=== PATIENT | female | born 1955 | race Caucasian/White ===

== ENCOUNTER → 2018-03-22 09:37 | Outpatient (CLI) | payer OTHER, SELFPAY ==
[2018-03-22 10:40] LABS: Add Manual Diff / Slide Review NO; Basophils Percent Auto 0.5 % (0-2); Eosinophils Percent Auto 0.6 % (2-4); Hematocrit 41.4 % (36-46); Hemoglobin 14.1 g/dL (12.0-16.0); Lymphocytes Percent Auto 29.9 % (25-40); Mean Corpuscular HGB Conc 34.2 % (30-36); Mean Corpuscular Volume 90.7 fL (80-100); Monocytes Percent Auto 9.9 % (3-14); Neutrophils Absolute Auto 2200 /uL (3000-5900); Neutrophils Percent Auto 59.1 % (50-75); Platelet Count 242 X10^3/uL (150-400); Red Blood Cell Count 4.56 X10^6/uL (4.0-5.2); Red Cell Distribution Width 13.6 % (11.6-14.8); White Blood Cell Count 3.7 X10^3/uL (4.5-11.0)
[2018-03-22 11:00] LABS: Alanine Aminotransferase 28 IU/L (9-52); Albumin 4.2 g/dL (3.5-5.0); Albumin Globulin Ratio 1.4 (1.0-2.8); Alkaline Phosphatase 57 U/L (38-126); Aspartate Aminotransferase 22 IU/L (14-36); BUN Creatinine Ratio 31.7 (6-22); Bilirubin Total 0.6 mg/dL (0.2-1.3); Blood Urea Nitrogen 19 mg/dL (7-17); Calcium 9.7 mg/dL (8.4-10.2); Carbon Dioxide 30 mmol/L (22-32); Chloride 103 mmol/L (98-107); Cholesterol 147 mg/dL (140-199); Estimated Glomerular Filt Rate > 60.0 mL/min (>60); Globulin 2.9 g/dL (1.7-4.1); Glucose 85 mg/dL (80-110); HDL Cholesterol 63 mg/dL (40-60); HEMOLYSIS < 15 (0-50); LDL Cholesterol Calculated 76 mg/dL (<100); Potassium 4.7 mmol/L (3.4-5.1); Sodium 144 mmol/L (137-145); Total Protein 7.1 g/dL (6.3-8.2); Triglycerides 38 mg/dL (35-150)
[2018-03-22 11:13] LABS: Free T3, Triiodothyronine Free 6.32 pg/mL (2.77-5.27); Free T4, Direct Thyroxine 0.59 ng/dL (0.78-2.19)
[2018-03-22 11:27] LABS: Thyroid Stimulating Hormone 0.05 uIU/mL (0.47-4.68)
== END ==
PROVIDERS: PCP Family Medicine; Visit Provider Family Medicine
DX: E03.9 Hypothyroidism, unspecified (principal); Z00.00 Encounter for general adult medical examination without abnormal findings
CPT/HCPCS: 36415; 80053; 80061; 84439; 84443; 84481; 85025

== ENCOUNTER → 2018-08-16 12:41 | Outpatient (CLI) | payer MEDICARE, OTHER, SELFPAY ==
--- NOTE | 2018-08-16 | DI.MG.S_ITS ---
BILATERAL DIGITAL SCREENING MAMMOGRAM 3D/2D WITH CAD: 08/16/2018 CLINICAL: Routine screening. Comparison is made to exams dated: 05/19/2017 mammogram, 05/18/2016 mammogram, and 07/25/2014 mammogram - [facility]. The tissue of both breasts is heterogeneously dense. This may lower the sensitivity of mammography. Current study was also evaluated with a Computer Aided Detection (CAD) system. There is 0.5 cm oval equal density asymmetry in the right breast at 11 o'clock anterior depth. No other significant masses, calcifications, or other findings are seen in either breast. IMPRESSION: INCOMPLETE: NEEDS ADDITIONAL IMAGING EVALUATION The 0.5 cm oval equal density asymmetry in the right breast is indeterminate. Additional views with possible ultrasound are recommended. This exam was interpreted at Station ID: [id number]. NOTE: For mammograms, a report in lay terms will be sent to the patient. Approximately 15% of breast malignancies will not be visualized mammographically. In the management of a palpable breast mass, a negative mammogram must not discourage biopsy of a clinically suspicious lesion. Electronically Signed By: Nawaf khanna/judith:08/16/2018 18:22:11 letter sent: Additional Imaging Needed ACR BI-RADS Category 0: Incomplete 3340F
== END ==
PROVIDERS: Family Provider Family Medicine; PCP Family Medicine; Visit Provider Family Medicine
DX: Z12.31 Encounter for screening mammogram for malignant neoplasm of breast (principal)
CPT/HCPCS: 77063; 77067

== ENCOUNTER → 2018-08-31 13:40 | Outpatient (CLI) | payer MEDICARE, OTHER, SELFPAY ==
--- NOTE | 2018-08-31 13:41 | DI.US.S_ITS ---
LIMITED ULTRASOUND OF RIGHT BREAST: 08/31/2018 CLINICAL: Patient returns today to evaluate an asymmetry in the right breast. Comparison is made to exams dated: 08/31/2018 mammogram, 08/16/2018 mammogram, 05/19/2017 mammogram, 05/18/2016 mammogram, 07/25/2014 mammogram, and 04/25/2013 mammogram - [facility]. Real-time and Doppler ultrasound of the right breast upper outer quadrant were performed. Hawk scale images of the real-time examination were reviewed. There is a 0.4 x 0.2 x 0.3 cm oval indistinct hypoechoic probable cyst in the right breast at 11:30 position 3 cm from the nipple which demonstrates minimal posterior acoustic enhancement and no vascularity on Doppler ultrasound. This appears to correlate with mammography findings. IMPRESSION: PROBABLY BENIGN 0.4 cm probable complicated cyst in the right breast at 11:30 position 3 cm from the nipple. A follow-up mammogram and ultrasound in 6 months is recommended to demonstrate stability. The patient is advised to monitor her breasts and to return sooner for re-evaluation should she feel anything grow or change. This exam was interpreted at Station ID: [id number]. Electronically Signed By: Syed Dudley M.D. ecl/:08/31/2018 18:03:26 letter sent: Followup Recommended Ultrasound BI-RADS: 3 Probably benign
--- NOTE | 2018-08-31 13:41 | DI.MG.S_ITS ---
UNILATERAL RIGHT DIGITAL DIAGNOSTIC MAMMOGRAM 3D/2D WITH ADDITIONAL VIEWS: 08/31/2018 CLINICAL: Additional evaluation requested from prior study. Comparison is made to exams dated: 08/16/2018 mammogram, 05/19/2017 mammogram, and 05/18/2016 mammogram - [facility]. The tissue of right breast is heterogeneously dense. This may lower the sensitivity of mammography. Previously identified approximately 0.5 cm oval equal density asymmetry in the upper outer right breast near 11 o'clock anterior to middle depth on comparison screening mammograms persists with additional views. IMPRESSION: INCOMPLETE: NEEDS ADDITIONAL IMAGING EVALUATION Previously identified approximately 0.5 cm oval equal density asymmetry in the upper outer right breast near 11 o'clock anterior to middle depth on comparison screening mammograms persists with additional views. A targeted ultrasound is recommended for further evaluation, and will be performed immediately following this exam. This exam was interpreted at Station ID: [id number]. NOTE: For mammograms, a report in lay terms will be sent to the patient. Approximately 15% of breast malignancies will not be visualized mammographically. In the management of a palpable breast mass, a negative mammogram must not discourage biopsy of a clinically suspicious lesion. Electronically Signed By: Syed Dudley M.D. ecl/:08/31/2018 18:01:19 letter sent: Additional Imaging Needed ACR BI-RADS Category 0: Incomplete 3340F
== END ==
PROVIDERS: Family Provider Family Medicine; PCP Family Medicine; Visit Provider Family Medicine
DX: R92.8 Other abnormal and inconclusive findings on diagnostic imaging of breast (principal); N64.89 Other specified disorders of breast
CPT/HCPCS: 76642; 77065; G0279

== ENCOUNTER → 2018-09-15 11:31 | Outpatient (CLI) | payer MEDICARE, OTHER, SELFPAY ==
--- NOTE | 2018-09-15 11:33 | DI.RAD.S_ITS ---
PROCEDURE: XR CHEST 2V INDICATIONS: Cough TECHNIQUE: 2 views of the chest were acquired. COMPARISON: [facility], , CHEST 2 VIEW, 03/13/2016, 12:04. FINDINGS: Surgical changes and devices: None. Lungs and pleura: Lungs are clear. No pleural effusions or pneumothorax. A presumed left nipple shadow as before. This could be confirmed with repeat chest radiograph with nipple markers . Mediastinum: Mediastinal contours are normal. Heart size is normal. Bones and chest wall: Mild anterior wedging of a lower thoracic vertebral body, probably T11. IMPRESSION: T11 mild compression fracture, technically age-indeterminate. Recommend clinical correlation. No acute cardiopulmonary disease. Dictated by: Jefferson Mercedes M.D. on 09/15/2018 at 11:57 Approved by: Jefferson Mercedes M.D. on 09/15/2018 at 11:59
== END ==
PROVIDERS: PCP Family Medicine; Visit Provider Registered Nurse
DX: R05 Cough (principal); M48.54XA Collapsed vertebra, not elsewhere classified, thoracic region, initial encounter for fracture
CPT/HCPCS: 71046

== ENCOUNTER → 2018-10-11 11:15 | Outpatient (CLI) | payer MEDICARE, OTHER, SELFPAY ==
--- NOTE | 2018-10-11 11:17 | DI.RAD.S_ITS ---
PROCEDURE: XR LUMBAR SPINE MIN 4V INDICATIONS: osteoporosis TECHNIQUE: 5 views of the lumbar spine were acquired. COMPARISON: [facility], , L-SPINE 2-3 VIEWS, 11/28/2014, 9:27. FINDINGS: Bones: 5 nonrib-bearing vertebrae are present. There is mildly dextroscoliotic bony alignment centered at L3. No vertebral body compression fractures. No suspicious bony lesions. With reference to prior lumbosacral spine plain film imaging from 11/28/14 there has been only a slight degree of interval worsening of degenerative changes at the disc spaces and also at the facet joints. No significant subluxation is seen. The degenerative changes are moderately severe over the lower half of the LS-spine where spinal and foraminal stenosis likely is present associated with both the scoliosis, disc height reduction, and facet osteoarthritis. Soft tissues: Overlying bowel gas pattern is normal. No suspicious soft tissue calcifications. Oblique images: No pars defects. IMPRESSION: Mild interval worsening in degenerative disc disease and facet osteoarthritis over the lumbosacral spine, with reference to the prior study from November of 2014. Significant spinal and foraminal stenosis would be expected over the lower half of the LS-spine but no acute trauma is seen. Dictated by: Derrick Onofre M.D. on 10/11/2018 at 13:25 Approved by: Derrick Onofre M.D. on 10/11/2018 at 13:26
== END ==
PROVIDERS: PCP Family Medicine; Visit Provider Family Medicine
DX: G89.29 Other chronic pain (principal); M54.5 Low back pain; M81.0 Age-related osteoporosis without current pathological fracture; M51.36 Other intervertebral disc degeneration, lumbar region; M48.061 Spinal stenosis, lumbar region without neurogenic claudication
CPT/HCPCS: 72110

== ENCOUNTER → 2018-10-14 10:16 | Outpatient (CLI) | payer MEDICARE, OTHER, SELFPAY | PROVIDERS: PCP Family Medicine; Visit Provider Family Medicine | DX: M81.0 Age-related osteoporosis without current pathological fracture (principal); Z78.0 Asymptomatic menopausal state; E07.9 Disorder of thyroid, unspecified; Z82.62 Family history of osteoporosis; Z87.891 Personal history of nicotine dependence; M54.5 Low back pain; G89.29 Other chronic pain | CPT/HCPCS: 77080; 77081 ==

== ENCOUNTER → 2019-03-08 13:39 | Outpatient (CLI) | payer MEDICARE, OTHER, SELFPAY ==
--- NOTE | 2019-03-08 13:41 | DI.MG.S_ITS ---
UNILATERAL RIGHT DIGITAL DIAGNOSTIC MAMMOGRAM 3D/2D SHORT-TERM FOLLOW-UP: 03/08/2019 CLINICAL: Patient returns for a 6 month follow up of the right breast. Comparison is made to exams dated: 08/31/2018 mammogram, 08/16/2018 mammogram, and 05/19/2017 mammogram - [facility]. The tissue of right breast is heterogeneously dense. This may lower the sensitivity of mammography. The previously described oval equal density asymmetry in the right breast at 11 o'clock anterior depth persists but appears much less prominent. No other significant masses or calcifications are seen in the breast. IMPRESSION: INCOMPLETE: NEEDS ADDITIONAL IMAGING EVALUATION The oval equal density asymmetry in the right breast remains indeterminate. Further evaluation with sonogram is recommended which is scheduled to immediately follow this examination. This exam was interpreted at Station ID: [id number]. NOTE: For mammograms, a report in lay terms will be sent to the patient. Approximately 15% of breast malignancies will not be visualized mammographically. In the management of a palpable breast mass, a negative mammogram must not discourage biopsy of a clinically suspicious lesion. Electronically Signed By: Nawaf Tan M.D. aty/:03/08/2019 14:56:50 ACR BI-RADS Category 0: Incomplete 3340F
--- NOTE | 2019-03-08 13:41 | DI.US.S_ITS ---
ULTRASOUND OF RIGHT BREAST: 03/08/2019 CLINICAL: 6 month follow-up of cysts. Comparison is made to exams dated: 08/31/2018 ultrasound, 08/31/2018 mammogram, 08/16/2018 mammogram, 05/19/2017 mammogram, and 05/18/2016 mammogram - [facility]. Color flow and real-time ultrasound of the right breast were performed. Hawk scale images of the real-time examination were reviewed. There is a persist 0.5 cm x 0.3 cm x 0.5 cm cluster of microcysts versus complicated cyst with septated internal fitzpatrick in the right breast at 11 o'clock middle depth 3 cm from the nipple. This cluster of irregular cysts is hypoechoic with posterior acoustic enhancement. Color flow imaging demonstrates that there is no vascularity present. This has demonstrated slight interval increase in size and previously measured 0.4 cm x 0.2 cm x 0.3 cm. There were several other smaller, similar appearing areas noted in the breast during real time imaging with the radiologist. Real time imaging demonstrated more cystic appearing components. IMPRESSION: PROBABLY BENIGN The 0.5 cm x 0.3 cm x 0.5 cm cluster of irregular cysts in the right breast likely represents a cluster of microcysts versus complicated cyst and has demonstrated some mild interval increase in size and is again probably benign. A follow-up bilateral mammogram and a right breast ultrasound in 6 months is recommended to demonstrate stability. If any clinical changes in symptoms or new palpable lesions, then return sooner for re-evaluation. Discussed options to possibly undergo ultrasound guided biopsy in lieu of observation if patient decides she does not want to continue with observation. Findings and recommendations were discussed with the patient during today's visit. This exam was interpreted at Station ID: [id number]. Electronically Signed By: Nawaf Tan M.D. aty/:03/08/2019 15:07:48 letter sent: Followup Recommended Ultrasound BI-RADS: 3 Probably benign
== END ==
PROVIDERS: PCP Family Medicine; Visit Provider Family Medicine
DX: R92.8 Other abnormal and inconclusive findings on diagnostic imaging of breast (principal); N60.01 Solitary cyst of right breast
CPT/HCPCS: 76642; 77065; G0279

== ENCOUNTER → 2019-05-31 13:12 | Outpatient (CLI) | payer MEDICARE, OTHER, SELFPAY ==
--- NOTE | 2019-05-31 13:15 | DI.RAD.S_ITS ---
PROCEDURE: XR FOOT LT MIN 3V INDICATIONS: left 2nd, 3rd digit pain TECHNIQUE: 3 views of the foot were acquired. COMPARISON: [facility], , FOOT 3V RIGHT, 04/08/2016, 15:13. FINDINGS: Bones: There is severe degenerative changes of the left first metatarsophalangeal joint with hallux valgus alignment. There are mild degenerative changes of the first and fifth interphalangeal joints. There is a subacute fracture of distal diaphysis of the left third metatarsal with mild medial and dorsal angulation and displacement of the distal fracture fragment, with prominent healing callus formation. Soft tissues: No tibiotalar joint effusion. IMPRESSION: 1. Subacute fracture of the left distal third metatarsal with prominent healing callus formation. Fracture components demonstrate mild angulation and displacement and are not yet fully united. 2. Severe degenerative changes of the left first metatarsophalangeal joint. Dictated by: Syed Dudley M.D. on 05/31/2019 at 16:59 Approved by: Syed Dudley M.D. on 05/31/2019 at 17:05
== END ==
PROVIDERS: PCP Family Medicine; Visit Provider Family Medicine
DX: M79.675 Pain in left toe(s) (principal); S92.332A Displaced fracture of third metatarsal bone, left foot, initial encounter for closed fracture
CPT/HCPCS: 73630

== ENCOUNTER → 2019-06-19 16:42 | Outpatient (CLI) | payer MEDICARE, OTHER, SELFPAY ==
--- NOTE | 2019-06-19 16:48 | DI.RAD.S_ITS ---
PROCEDURE: XR LUMBAR SPINE 2-3V INDICATIONS: LOWER BACK PAIN TECHNIQUE: 3 views of the lumbar spine were acquired. COMPARISON: [facility], CR, XR LUMBAR SPINE MIN 4V, 10/11/2018, 11:24. FINDINGS: Bones: There are 5 lumbar type vertebral bodies. There are bilateral costochondral calcifications. There is mild dextrocurvature of the lumbar spine centered at L3. The bones are diffusely demineralized. There is approximately 0.5 cm of retrolisthesis of L3 on L4. There is mild anterior wedging of the T11, T12, and L3 vertebral bodies. There is multilevel reactive endplate sclerosis most severe at the L1-L2 and L2-L3 levels. There is multilevel facet arthropathy resulting in multilevel osseous neural foraminal stenosis. Soft tissues: Overlying bowel gas pattern is nonobstructive. IMPRESSION: Moderate multilevel degenerative changes of the lumbar spine. Mild anterior wedging deformity of the T11, T12, and L3 vertebral bodies is likely secondary to chronic degenerative change, but mild compression fractures or discitis/osteomyelitis could appear similar. Correlation with point tenderness at these sites is suggested to exclude acute or subacute fracture. Consider MRI if there is continued clinical concern. Dictated by: Syed Dudley M.D. on 06/19/2019 at 18:30 Approved by: Syed Dudley M.D. on 06/19/2019 at 18:35
== END ==
PROVIDERS: PCP Family Medicine; Visit Provider Family Medicine
DX: M54.5 Low back pain (principal); M47.816 Spondylosis without myelopathy or radiculopathy, lumbar region
CPT/HCPCS: 72100

== ENCOUNTER → 2019-06-24 10:34 | Outpatient (CLI) | payer MEDICARE, OTHER, SELFPAY ==
--- NOTE | 2019-06-24 10:36 | DI.MRI.S_ITS ---
PROCEDURE: MR LUMBAR SPINE WO CON INDICATIONS: back pain after injury TECHNIQUE: Noncontrast sagittal T1 spin echo and T2 fast echo, sagittal STIR, axial T1 and T2 fast spin echo through the lumbar spine. In cases with scoliosis, additional coronal T2 fast spin echo may be performed. COMPARISON: [facility], CR, XR LUMBAR SPINE 2-3V, 06/19/2019, 16:50. FINDINGS: Image quality: Excellent. Alignment and Curvature: There is mild L1-L2-L2-L3 retrolisthesis. There is trace L3-L4 retrolisthesis. Bone Marrow: Loss of height noted in the T12 vertebral body compatible with compression fracture. Increased T2 signal noted in the marrow space of the T12 vertebral body indicating compression fractures acute to subacute. T12 compression fracture results in approximately 30% loss of normal vertebral body height. Chronic appearing T11 compression fracture is noted which results in approximately 60% loss of normal intervertebral body height. No kyphosis or retropulsed fragments associated the T12 or T11 compression fractures. Reactive endplate changes noted at the L1-L2, L2-L3 and L3-L4 discs. Spinal Cord: Conus medullaris terminates at the L1 level. Visualized cord demonstrates normal signal and size. Paraspinous Soft Tissues: No paravertebral masses. L1-L2: Loss of disc signal and height. Posterior disc osteophyte complex. Mild bilateral facet hypertrophy. Moderate narrowing of the central canal. Moderate bilateral neural foraminal narrowing. No neural compression. L2-L3: Loss of disc signal and height. Mild diffuse disc bulge. Mild bilateral facet hypertrophy. Mild ligamentum flavum hypertrophy. Moderate to severe narrowing of the central canal. Moderate right and severe left neural foraminal narrowing with compression of the exiting left L2 nerve root. L3-L4: Loss of disc signal and height. Mild, diffuse disc bulge. Mild bilateral facet hypertrophy. Mild ligamentum flavum hypertrophy. Moderate to severe narrowing of the central canal. Moderate right and severe left neural foraminal narrowing with compression of the exiting left L3 nerve root. L4-L5: Loss of disc signal. Minimal, diffuse disc bulge. Severe bilateral facet hypertrophy. Mild ligamentum flavum hypertrophy. Moderate to severe narrowing of the central canal. Moderate bilateral neural foraminal narrowing. No neural compression. L5-S1: Loss of disc signal. Moderate bilateral facet hypertrophy. No central stenosis. Mild bilateral neural foraminal narrowing. No neural compression. IMPRESSION: 1. Acute/subacute T12 compression fracture. Chronic appearing T11 compression fracture. 2. Multilevel degenerative disc disease. 3. Multilevel facet arthropathy 4. Moderate to severe L2-L3, L3-L4 and L4-L5 central canal narrowing. Moderate L1-L2 central canal narrowing. 5. Moderate right and severe left L2-L3 and L3-L4 neural foraminal narrowing. Moderate bilateral L1-L2 and L4-L5 neural foraminal narrowing. Mild bilateral L5-S1 neural foraminal narrowing. 6. Compression of the exiting left L2 nerve root and the exiting left L3 nerve root secondary to neural foraminal narrowing. Dictated by: Екатерина Womack MD, PhD on 06/26/2019 at 10:14 Approved by: Екатерина Womack MD, PhD on 06/26/2019 at 10:48
== END ==
PROVIDERS: PCP Family Medicine; Visit Provider Family Medicine
DX: M54.5 Low back pain (principal); M51.36 Other intervertebral disc degeneration, lumbar region; M48.061 Spinal stenosis, lumbar region without neurogenic claudication; M48.07 Spinal stenosis, lumbosacral region; M47.816 Spondylosis without myelopathy or radiculopathy, lumbar region; M47.817 Spondylosis without myelopathy or radiculopathy, lumbosacral region; M48.54XA Collapsed vertebra, not elsewhere classified, thoracic region, initial encounter for fracture
CPT/HCPCS: 72148

== ENCOUNTER → 2019-07-04 10:21 | Outpatient (CLI) | payer MEDICARE, OTHER, SELFPAY ==
[2019-07-04 10:55] LABS: BUN Creatinine Ratio 38.3 (6-22); Blood Urea Nitrogen 23 mg/dL (7-17); Calcium 9.4 mg/dL (8.4-10.2); Carbon Dioxide 31 mmol/L (22-32); Chloride 104 mmol/L (98-107); Estimated Glomerular Filt Rate > 60.0 mL/min (>60); Glucose 94 mg/dL (80-110); HEMOLYSIS < 15 (0-50); Potassium 4.4 mmol/L (3.4-5.1); Sodium 141 mmol/L (137-145)
== END ==
PROVIDERS: PCP Family Medicine; Visit Provider Family Medicine
DX: M81.0 Age-related osteoporosis without current pathological fracture (principal)
CPT/HCPCS: 36415; 80048

== ENCOUNTER → 2019-07-13 14:00 | Outpatient (CLI) | payer MEDICARE, OTHER, SELFPAY ==
--- NOTE | 2019-07-13 14:03 | DI.RAD.S_ITS ---
PROCEDURE: XR FOOT LT MIN 3V INDICATIONS: fracture TECHNIQUE: 3 views of the foot were acquired. COMPARISON: [facility], , XR FOOT LT MIN 3V, 05/31/2019, 13:14. FINDINGS: Bones: There is a healing fracture with callus formation in the distal surgeon metatarsal neck. The alignment is stable. No suspicious bony lesions. There is severe degenerative joint disease at the first metatarsophalangeal joint, and mild to moderate degenerative joint disease in midfoot and forefoot. Soft tissues: No tibiotalar joint effusion. Achilles tendon appears normal. IMPRESSION: Healing fracture of the distal third metatarsal neck with stable alignment. Dictated by: Joaquina Armendariz M.D. on 07/13/2019 at 17:11 Approved by: Joaquina Armendariz M.D. on 07/13/2019 at 17:13
== END ==
PROVIDERS: PCP Family Medicine; Visit Provider Family Medicine
DX: S92.332D Displaced fracture of third metatarsal bone, left foot, subsequent encounter for fracture with routine healing (principal); M19.072 Primary osteoarthritis, left ankle and foot; X58.XXXD Exposure to other specified factors, subsequent encounter
CPT/HCPCS: 73630

== ENCOUNTER → 2019-09-04 11:46 | Outpatient (CLI) | payer MEDICARE, OTHER, SELFPAY ==
--- NOTE | 2019-09-04 11:49 | DI.RAD.S_ITS ---
PROCEDURE: XR FOOT LT MIN 3V INDICATIONS: 4th digit pain r/o stress fracture TECHNIQUE: 3 views of the foot were acquired. COMPARISON: [facility], CR, XR FOOT LT MIN 3V, 07/13/2019, 13:59. FINDINGS: Bones: No acute fracture identified. Chronic fracture of the third metatarsal. Hallux valgus and severe first MTP joint degeneration. Diffuse lesser toe interphalangeal degenerative changes. Soft tissues: No tibiotalar joint effusion. Achilles tendon appears normal. IMPRESSION: Chronic third metatarsal fracture. No definite fourth metatarsal fracture. If the patient's symptoms do not improve recommend followup radiographs in 10 days to assess for healing sclerosis/occult injury. Degenerative changes as above. Dictated by: Jefferson Mercedes M.D. on 09/04/2019 at 16:09 Approved by: Jefferson Mercedes M.D. on 09/04/2019 at 16:15
== END ==
PROVIDERS: PCP Family Medicine; Referring Provider Family Medicine; Visit Provider Family Medicine
DX: S92.332A Displaced fracture of third metatarsal bone, left foot, initial encounter for closed fracture (principal)
CPT/HCPCS: 73630

== ENCOUNTER → 2019-09-15 09:10 | Outpatient (CLI) | payer MEDICARE, OTHER, SELFPAY ==
--- NOTE | 2019-09-15 09:13 | DI.US.S_ITS ---
LIMITED ULTRASOUND OF RIGHT BREAST: 09/15/2019 CLINICAL: Follow up on rt breast density. Comparison is made to exams dated: 03/08/2019 ultrasound, 03/08/2019 mammogram, 08/31/2018 ultrasound, 08/31/2018 mammogram, and 08/16/2018 mammogram - [facility]. Color flow and real-time ultrasound of the right breast 11 o'clock region were performed on the areas of interest. There is a 0.6 cm x 0.4 cm x 0.6 cm oval complicated cyst in the right breast at 11 o'clock middle depth. This oval complicated cyst is hypoechoic with posterior acoustic enhancement. There are indistinct margins. This abnormality is progressively increased in size. Color flow imaging demonstrates that there is no vascularity present. IMPRESSION: PROBABLY BENIGN The 0.6 cm x 0.4 cm x 0.6 cm oval complicated cyst in the right breast is consistent with a complicated cyst and is probably benign. Follow-up mammogram and ultrasound in 6 months is recommended. A follow-up mammogram and an ultrasound in 6 months are recommended to demonstrate stability. This exam was interpreted at Station ID: [id number]. Electronically Signed By: Ryan sosa/:09/15/2019 11:55:20 letter sent: Followup Recommended Ultrasound BI-RADS: 3 Probably benign
--- NOTE | 2019-09-15 09:13 | DI.MG.S_ITS ---
BILATERAL DIGITAL DIAGNOSTIC MAMMOGRAM 3D/2D: 09/15/2019 CLINICAL: Short term follow up. Comparison is made to exams dated: 03/08/2019 mammogram, 08/31/2018 mammogram, and 08/16/2018 mammogram - [facility]. The tissue of both breasts is heterogeneously dense. This may lower the sensitivity of mammography. There is an oval equal density asymmetry with an indistinct margin in the right breast middle depth lateral region seen on the craniocaudal view only. This is less prominent. No other significant masses, calcifications, or other findings are seen in either breast. IMPRESSION: INCOMPLETE: NEEDS ADDITIONAL IMAGING EVALUATION The oval equal density asymmetry in the right breast is indeterminate. An ultrasound is recommended. This exam was interpreted at Station ID: [id number]. NOTE: For mammograms, a report in lay terms will be sent to the patient. Approximately 15% of breast malignancies will not be visualized mammographically. In the management of a palpable breast mass, a negative mammogram must not discourage biopsy of a clinically suspicious lesion. Electronically Signed By: Ryan sosa/judith:09/15/2019 11:27:15 ACR BI-RADS Category 0: Incomplete 3340F
[2019-09-15 12:11] LABS: Add Manual Diff / Slide Review NO; Basophils Absolute Auto 0 /uL (0-100); Basophils Percent Auto 0.5 % (0-2); Eosinophils Absolute Auto 0 /uL (0-450); Eosinophils Percent Auto 0.5 % (2-4); Hematocrit 41.9 % (36-46); Hemoglobin 13.8 g/dL (12.0-16.0); Lymphocytes Absolute Auto 1500 /uL (1100-4500); Lymphocytes Percent Auto 28.8 % (25-40); Mean Corpuscular Hemoglobin 30.7 PG (26-34); Mean Corpuscular Volume 92.8 fL (80-100); Monocytes Absolute Auto 300 /uL (0-900); Monocytes Percent Auto 6.2 % (3-14); Neutrophils Absolute Auto 3400 /uL (1500-7000); Platelet Count 243 X10^3/uL (150-400); Red Blood Cell Count 4.52 X10^6/uL (4.0-5.2); Red Cell Distribution Width 13.9 % (11.6-14.8); White Blood Cell Count 5.3 X10^3/uL (4.5-11.0)
[2019-09-15 12:21] LABS: Alanine Aminotransferase 22 IU/L (<35); Albumin 4.3 g/dL (3.5-5.0); Albumin Globulin Ratio 1.4 (1.0-2.8); Alkaline Phosphatase 67 U/L (38-126); Aspartate Aminotransferase 28 IU/L (14-36); BUN Creatinine Ratio 30.4 (6-22); Bilirubin Total 0.6 mg/dL (0.2-1.3); Blood Urea Nitrogen 17 mg/dL (7-17); Calcium 9.4 mg/dL (8.4-10.2); Carbon Dioxide 30 mmol/L (22-32); Chloride 102 mmol/L (98-107); Estimated Glomerular Filt Rate > 60.0 mL/min (>60); Glucose 92 mg/dL (80-110); HEMOLYSIS < 15 (0-50); Lactate Dehydrogenase 430 U/L (313-618); Potassium 4.1 mmol/L (3.4-5.1); Sodium 139 mmol/L (137-145); Total Protein 7.3 g/dL (6.3-8.2)
== END ==
PROVIDERS: PCP Family Medicine; Referring Provider Family Medicine; Visit Provider Family Medicine
DX: R92.8 Other abnormal and inconclusive findings on diagnostic imaging of breast (principal); N60.01 Solitary cyst of right breast; S22.080A Wedge compression fracture of T11-T12 vertebra, initial encounter for closed fracture; S92.909A Unspecified fracture of unspecified foot, initial encounter for closed fracture
CPT/HCPCS: 36415; 76642; 77066; 80053; 83615; 85025; G0279

== ENCOUNTER → 2019-09-18 09:01 | Outpatient (CLI) | payer MEDICARE, OTHER, SELFPAY ==
--- NOTE | 2019-09-18 09:02 | DI.NM.S_ITS ---
PROCEDURE: NM BONE SCAN WHOLE BODY RADIOPHARMACEUTICAL: 20.1 mCi Tc-99m MDP IV. INDICATIONS: recent unexplained fractures TECHNIQUE: Delayed whole-body scintigrams were obtained approximately 3-4 hours after intravenous injection of radiotracer. Anterior and posterior views were acquired from vertex to feet. Additional left and right oblique views of the spine and feet were obtained. COMPARISON: [facility], CR, XR LUMBAR SPINE 2-3V, 06/19/2019, 16:50. [facility], MR, MR LUMBAR SPINE WO CON, 06/24/2019, 10:41. [facility], CR, XR CHEST 2V, 09/15/2018, 11:34. FINDINGS: Physiologic uptake is noted within the kidneys and bladder. There is diffuse increased uptake at the levels of L2, 3, 4 and 5. Increased uptake is also noted within the femoral heads bilaterally. Increased uptake is noted within the right sternoclavicular joint space. Areas of uptake are noted within the small bones of the feet bilaterally. IMPRESSION: Increased uptake within the lumbar spine suspicious, although inconclusive for metastatic disease. These could represent areas of recent fracture. Further evaluation with MRI is recommended. Dictated by: Samanta Fonseca M.D. on 09/18/2019 at 16:54 Approved by: Samanta Fonseca M.D. on 09/18/2019 at 16:56
[2019-09-20 12:40] LABS: M-Spike % Not Observed % (Not Observed); Protein, Total, 24 hr urine 117 mg/24 hr (30-150); Total Urine Protein 5.3 mg/dL (Not Estab.)
== END ==
PROVIDERS: PCP Family Medicine; Referring Provider Family Medicine; Visit Provider Family Medicine
DX: S22.080A Wedge compression fracture of T11-T12 vertebra, initial encounter for closed fracture (principal); S92.909A Unspecified fracture of unspecified foot, initial encounter for closed fracture; M81.0 Age-related osteoporosis without current pathological fracture
CPT/HCPCS: 78306; 84156; 84166; A9503

== ENCOUNTER → 2020-03-28 09:15 | Outpatient (CLI) | payer MEDICARE, OTHER, SELFPAY ==
--- NOTE | 2020-03-28 09:16 | DI.US.S_ITS ---
LIMITED ULTRASOUND OF RIGHT BREAST: 03/28/2020 CLINICAL: 6 month follow-up of cysts. Comparison is made to exams dated: 03/28/2020 mammogram, 09/15/2019 ultrasound, 09/15/2019 mammogram, 03/08/2019 ultrasound, 03/08/2019 mammogram, and 08/31/2018 ultrasound [facility]. Real-time ultrasound of the right breast 11 o'clock region was performed. Hawk scale images of the real-time examination were reviewed. There is a stable 0.4 cm x 0.5 cm x 0.3 cm oval complicated cyst in the right breast at 11 o'clock middle depth 3 cm from the nipple. This oval complicated cyst is hypoechoic with posterior acoustic enhancement. Color flow imaging demonstrates that there is no vascularity present. IMPRESSION: PROBABLY BENIGN The stable 0.4 cm x 0.5 cm x 0.3 cm oval cyst in the right breast is consistent with a complicated cyst and is probably benign. A follow-up right ultrasound in 6 months is recommended to demonstrate stability. Future imaging is recommended as follows: 09/27/2020 screening mammogram. Findings and recommendations were conveyed to the patient at time of exam. This exam was interpreted at Station ID: [id number]. Electronically Signed By: Shari suarez/:03/28/2020 10:50:10 letter sent: Followup Recommended Ultrasound BI-RADS: 3 Probably benign
--- NOTE | 2020-03-28 09:16 | DI.MG.S_ITS ---
UNILATERAL RIGHT DIGITAL DIAGNOSTIC MAMMOGRAM 3D/2D: 03/28/2020 CLINICAL: Short term follow up of the right breast. Comparison is made to exams dated: 09/15/2019 mammogram, 03/08/2019 mammogram, 08/31/2018 mammogram, and 08/16/2018 mammogram - [facility]. The tissue of right breast is heterogeneously dense. This may lower the sensitivity of mammography. Prior asymmetry in the right breast in the lateral aspec is no longer seen as a discrete structure. No significant masses, calcifications, or other findings are seen in the breast. IMPRESSION: INCOMPLETE: NEEDS ADDITIONAL IMAGING EVALUATION Resolution of previous asymmetry with additional views. Ultrasound evaluation to reevaluate a previously identified complicated cyst at 11:00 is recommended and was performed immediately following this exam. This exam was interpreted at Station ID: [id number]. NOTE: For mammograms, a report in lay terms will be sent to the patient. Approximately 15% of breast malignancies will not be visualized mammographically. In the management of a palpable breast mass, a negative mammogram must not discourage biopsy of a clinically suspicious lesion. Electronically Signed By: Shari suarez/:03/28/2020 09:59:51 ACR BI-RADS Category 0: Incomplete [id number]
== END ==
PROVIDERS: PCP Family Medicine; Referring Provider Family Medicine; Visit Provider Family Medicine
DX: R92.8 Other abnormal and inconclusive findings on diagnostic imaging of breast (principal); N60.01 Solitary cyst of right breast
CPT/HCPCS: 76642; 77065; G0279

== ENCOUNTER → 2020-05-27 11:49 | Outpatient (CLI) | payer MEDICARE, OTHER, SELFPAY ==
[2020-05-27 13:37] LABS: TSH w/ Reflex to FT4 0.06 uIU/mL (0.47-4.68)
[2020-05-27 14:03] LABS: Free T4, Direct Thyroxine 0.68 ng/dL (0.78-2.19)
== END ==
PROVIDERS: PCP Family Medicine; Referring Provider Family Medicine; Visit Provider Family Medicine
DX: E03.9 Hypothyroidism, unspecified (principal)
CPT/HCPCS: 36415; 84439; 84443

== ENCOUNTER → 2020-07-29 15:17 | Outpatient (CLI) | payer MEDICARE, OTHER, SELFPAY ==
[2020-07-29 18:11] LABS: Free T4, Direct Thyroxine 0.79 ng/dL (0.78-2.19)
== END ==
PROVIDERS: PCP Family Medicine; Referring Provider Family Medicine; Visit Provider Family Medicine
DX: E03.9 Hypothyroidism, unspecified (principal)
CPT/HCPCS: 36415; 84439; 84443

== ENCOUNTER → 2020-07-31 12:18 | Outpatient (CLI) | payer MEDICARE, OTHER, SELFPAY ==
[2020-07-31] MEDS: COVID-19 VACC #1, MRNA(MOD) 100 MCG/0.5 ML VIAL IM (12:27)
== END ==
PROVIDERS: PCP Family Medicine; Visit Provider Internal Medicine
DX: Z23 Encounter for immunization (principal)
CPT/HCPCS: 0011A; 91301

== ENCOUNTER → 2020-08-29 10:12 | Outpatient (CLI) | payer MEDICARE, OTHER, SELFPAY ==
[2020-08-29] MEDS: COVID-19 VACC #2, MRNA(MOD) 100 MCG/0.5 ML VIAL IM (10:17)
== END ==
PROVIDERS: PCP Family Medicine; Visit Provider Internal Medicine
DX: Z23 Encounter for immunization (principal)
CPT/HCPCS: 0012A; 91301

== ENCOUNTER → 2020-09-06 11:10 | Outpatient (CLI) | payer MEDICARE, OTHER, SELFPAY ==
[2020-09-06 12:11] LABS: BUN Creatinine Ratio 14.5 (6-22); Blood Urea Nitrogen 9 mg/dL (7-17); Calcium 9.2 mg/dL (8.4-10.2); Carbon Dioxide 33 mmol/L (22-32); Chloride 98 mmol/L (98-107); Estimated Glomerular Filt Rate > 60.0 mL/min (>60); Glucose 123 mg/dL (80-110); HEMOLYSIS < 15 (0-50); Potassium 3.7 mmol/L (3.4-5.1); Sodium 133 mmol/L (137-145)
== END ==
PROVIDERS: PCP Family Medicine; Referring Provider Family Medicine; Visit Provider Family Medicine
DX: Z01.812 Encounter for preprocedural laboratory examination (principal)
CPT/HCPCS: 36415; 80048

== ENCOUNTER → 2020-10-11 13:21 | Outpatient (CLI) | payer MEDICARE, OTHER, SELFPAY ==
--- NOTE | 2020-10-11 13:25 | DI.US.S_ITS ---
LIMITED ULTRASOUND OF RIGHT BREAST: 10/11/2020 CLINICAL: Patient returns for short term follow-up of a probably benign mass in the right breast. Comparison is made to exams dated: 10/11/2020 mammogram, 03/28/2020 ultrasound, 03/28/2020 mammogram, 09/15/2019 ultrasound, 09/15/2019 mammogram, and 03/08/2019 [facility]. Color flow and real-time ultrasound of the right breast 11 o'clock region were performed. Hawk scale images of the real-time examination were reviewed. There is a stable 0.4 cm x 0.4 cm x 0.3 cm oval cyst in the right breast at 11 o'clock middle depth 3 cm from the nipple. This oval cyst is hypoechoic. Color flow imaging demonstrates that there is no vascularity present. IMPRESSION: PROBABLY BENIGN Stable 0.4 cm oval cyst in the right breast is consistent with a complicated cyst and is probably benign. A follow-up ultrasound in 6 months is recommended to demonstrate long-term stability. Exam findings were conveyed to the patient. This exam was interpreted at Station ID: [id number]. Electronically Signed By: Sloan Irizarry M.D. slc/:10/11/2020 14:52:04 letter sent: Followup Recommended Ultrasound BI-RADS: 3 Probably benign
--- NOTE | 2020-10-11 13:25 | DI.MG.S_ITS ---
BILATERAL DIGITAL DIAGNOSTIC MAMMOGRAM 3D/2D: 10/11/2020 CLINICAL: Short term follow up of the right breast, due for bilateral imaging. Comparison is made to exams dated: 03/28/2020 mammogram, 09/15/2019 mammogram, 03/08/2019 mammogram, and 03/28/2020 [facility]. The tissue of both breasts is heterogeneously dense. This may lower the sensitivity of mammography. Prior asymmetry is no longer seen in the right breast in the lateral aspect. No significant masses, calcifications, or other findings are seen in either breast. IMPRESSION: INCOMPLETE: NEEDS ADDITIONAL IMAGING EVALUATION No mammographic evidence of malignancy. A targeted right breast ultrasound is recommended for the previously seen cyst and will immediately follow. This exam was interpreted at Station ID: [id number]. NOTE: For mammograms, a report in lay terms will be sent to the patient. Approximately 15% of breast malignancies will not be visualized mammographically. In the management of a palpable breast mass, a negative mammogram must not discourage biopsy of a clinically suspicious lesion. Electronically Signed By: Sloan Irizarry M.D. slc/:10/11/2020 13:53:15 ACR BI-RADS Category 0: Incomplete 3340F
== END ==
PROVIDERS: PCP Family Medicine; Referring Provider Family Medicine; Visit Provider Family Medicine
DX: R92.8 Other abnormal and inconclusive findings on diagnostic imaging of breast (principal); N60.01 Solitary cyst of right breast; E03.9 Hypothyroidism, unspecified
CPT/HCPCS: 36415; 76642; 77066; 84443; G0279

== ENCOUNTER → 2020-11-18 13:33 | Outpatient (CLI) | payer MEDICARE, OTHER, SELFPAY ==
[2020-11-18 15:27] LABS: TSH w/ Reflex to FT4 < 0.02 uIU/mL (0.47-4.68)
[2020-11-18 16:27] LABS: Thyroid Stimulating Hormone < 0.015 uIU/mL (0.47-4.68)
[2020-11-18 17:58] LABS: Free T4, Direct Thyroxine 2.52 ng/dL (0.78-2.19)
== END ==
PROVIDERS: PCP Family Medicine; Referring Provider Family Medicine; Visit Provider Family Medicine
DX: E03.9 Hypothyroidism, unspecified (principal); I10 Essential (primary) hypertension
CPT/HCPCS: 36415; 84439; 84443

== ENCOUNTER → 2021-02-10 14:00 | Outpatient (CLI) | payer MEDICARE, OTHER, SELFPAY ==
[2021-02-10 15:24] LABS: TSH w/ Reflex to FT4 < 0.02 uIU/mL (0.47-4.68)
[2021-02-10 19:36] LABS: Free T4, Direct Thyroxine 1.92 ng/dL (0.78-2.19)
== END ==
PROVIDERS: PCP Family Medicine; Referring Provider Family Medicine; Visit Provider Family Medicine
DX: E03.9 Hypothyroidism, unspecified (principal)
CPT/HCPCS: 36415; 84439; 84443

== ENCOUNTER → 2021-03-17 11:09 | Outpatient (CLI) | payer MEDICARE, OTHER, SELFPAY | PROVIDERS: PCP Family Medicine; Referring Provider Family Medicine; Visit Provider Family Medicine | DX: N60.09 Solitary cyst of unspecified breast (principal); Z12.39 Encounter for other screening for malignant neoplasm of breast; Z53.8 Procedure and treatment not carried out for other reasons ==

== ENCOUNTER → 2021-06-09 14:27 | Outpatient (CLI) | payer MEDICARE, OTHER, SELFPAY ==
[2021-06-09 17:18] LABS: TSH w/ Reflex to FT4 0.42 uIU/mL (0.47-4.68)
[2021-06-09 17:45] LABS: Free T4, Direct Thyroxine 1.51 ng/dL (0.78-2.19)
== END ==
PROVIDERS: PCP Family Medicine; Referring Provider Family Medicine; Visit Provider Family Medicine
DX: E03.9 Hypothyroidism, unspecified (principal)
CPT/HCPCS: 36415; 84439; 84443

== ENCOUNTER → 2021-07-23 13:44 | Outpatient (CLI) | payer MEDICARE, OTHER, SELFPAY ==
[2021-07-23 15:58] LABS: Thyroid Stimulating Hormone 1.68 uIU/mL (0.47-4.68)
== END ==
PROVIDERS: PCP Family Medicine; Referring Provider Family Medicine; Visit Provider Family Medicine
DX: E03.9 Hypothyroidism, unspecified (principal)
CPT/HCPCS: 36415; 84443

== ENCOUNTER → 2021-09-26 15:47 | Outpatient (CLI) | payer MEDICARE, OTHER, SELFPAY ==
--- NOTE | 2021-09-26 15:49 | DI.RAD.S_ITS ---
PROCEDURE: XR ELBOW LT MIN 3V INDICATIONS: L elbow injury TECHNIQUE: 3 views of the elbow were acquired. COMPARISON: None. FINDINGS: Bones: No fractures or dislocations. No suspicious bony lesions. Soft tissues: No elbow joint effusion. Small corticated calcification in soft tissue over dorsal and lateral aspect of proximal forearm at the level of radial neck likely represent old injury. IMPRESSION: No acute elbow fracture or dislocation. No joint effusion. Likely old injury involving proximal forearm with well corticated calcification as above. Dictated by: Frandy Gonzales M.D. on 09/26/2021 at 15:56 Approved by: Frandy Gonzales M.D. on 09/26/2021 at 16:01
== END ==
PROVIDERS: PCP Family Medicine; Referring Provider Physician Assistant; Visit Provider Physician Assistant
DX: S59.902A Unspecified injury of left elbow, initial encounter (principal); X58.XXXA Exposure to other specified factors, initial encounter
CPT/HCPCS: 73080

== ENCOUNTER → 2021-10-09 12:57 | Outpatient (CLI) | payer MEDICARE, OTHER, SELFPAY ==
[2021-10-09 15:52] LABS: TSH w/ Reflex to FT4 4.66 uIU/mL (0.47-4.68)
== END ==
PROVIDERS: PCP Family Medicine; Referring Provider Family Medicine; Visit Provider Family Medicine
DX: E03.9 Hypothyroidism, unspecified (principal)
CPT/HCPCS: 36415; 84443

== ENCOUNTER → 2021-10-13 11:59 | Outpatient (CLI) | payer MEDICARE, OTHER, SELFPAY ==
--- NOTE | 2021-10-13 12:02 | DI.MG.S_ITS ---
BILATERAL DIGITAL SCREENING MAMMOGRAM 3D/2D WITH CAD: 10/13/2021 CLINICAL: Routine screening. Comparison is made to exams dated: 10/11/2020 ultrasound, 10/11/2020 mammogram, 03/28/2020 mammogram, and 09/15/2019 mammogram - [facility]. The tissue of both breasts is heterogeneously dense. This may lower the sensitivity of mammography. Current study was also evaluated with a Computer Aided Detection (CAD) system. No significant masses, calcifications, or other findings are seen in either breast. There has been no significant interval change. IMPRESSION: NEGATIVE There is no mammographic evidence of malignancy. A 1 year screening mammogram is recommended. This exam was interpreted at Station ID: [id number]. NOTE: For mammograms, a report in lay terms will be sent to the patient. Approximately 15% of breast malignancies will not be visualized mammographically. In the management of a palpable breast mass, a negative mammogram must not discourage biopsy of a clinically suspicious lesion. Electronically Signed By: Binta mccrary/judith:10/13/2021 12:51:50 letter sent: Normal Exam ACR BI-RADS Category 1: Negative 3341F
== END ==
PROVIDERS: PCP Family Medicine; Referring Provider Family Medicine; Visit Provider Family Medicine
DX: Z12.31 Encounter for screening mammogram for malignant neoplasm of breast (principal)
CPT/HCPCS: 77063; 77067

== ENCOUNTER → 2021-11-10 14:13 | Outpatient (CLI) | payer MEDICARE, OTHER, SELFPAY | PROVIDERS: PCP Family Medicine; Referring Provider Family Medicine; Visit Provider Family Medicine | DX: M81.0 Age-related osteoporosis without current pathological fracture (principal); Z78.0 Asymptomatic menopausal state | CPT/HCPCS: 77080 ==

== ENCOUNTER → 2021-11-12 16:28 | Outpatient (CLI) | payer MEDICARE, OTHER, SELFPAY ==
[2021-11-12 19:45] LABS: Free T4, Direct Thyroxine 1.17 ng/dL (0.78-2.19)
== END ==
PROVIDERS: PCP Family Medicine; Referring Provider Family Medicine; Visit Provider Family Medicine
DX: E03.9 Hypothyroidism, unspecified (principal)
CPT/HCPCS: 36415; 84439; 84443

== ENCOUNTER → 2021-12-08 13:56 | Outpatient (CLI) | payer MEDICARE, OTHER, SELFPAY ==
[2021-12-08 15:28] LABS: TSH w/ Reflex to FT4 6.92 uIU/mL (0.47-4.68)
[2021-12-08 15:56] LABS: Free T4, Direct Thyroxine 1.19 ng/dL (0.78-2.19)
== END ==
PROVIDERS: PCP Family Medicine; Referring Provider Family Medicine; Visit Provider Family Medicine
DX: E03.9 Hypothyroidism, unspecified (principal)
CPT/HCPCS: 36415; 84439; 84443

== ENCOUNTER → 2022-01-16 15:22 | Outpatient (CLI) | payer MEDICARE, OTHER, SELFPAY ==
--- NOTE | 2022-01-16 15:23 | DI.RAD.S_ITS ---
PROCEDURE: XR LUMBAR SPINE 2-3V INDICATIONS: acute low back pain TECHNIQUE: <3> views of the lumbar spine were acquired. COMPARISON: [facility], CR, XR LUMBAR SPINE 2-3V, 06/19/2019, 16:50. [facility], CR, XR LUMBAR SPINE MIN 4V, 10/11/2018, 11:24. FINDINGS: Bones: 5 [id number] vertebrae are present. No spondylolisthesis. Multilevel moderate to severe spondylosis, characterized by disc space height loss and facet arthropathy primarily. Lower thoracic vertebral body height loss was seen previously. Trace rightward lumbar curvature. Bilateral hip osteoarthritis also partially seen. Soft tissues: Overlying bowel gas pattern is normal. Some small abdominal pelvic calcifications are seen, location indeterminate. IMPRESSION: Moderate to severe spondylosis. Height loss of some vertebral bodies is seen previously. Dictated by: Curtis Toledo M.D. on 01/16/2022 at 16:46 Approved by: Curtis Toledo M.D. on 01/16/2022 at 16:50
== END ==
PROVIDERS: PCP Family Medicine; Referring Provider Family Medicine; Visit Provider Family Medicine
DX: M47.816 Spondylosis without myelopathy or radiculopathy, lumbar region (principal); M81.0 Age-related osteoporosis without current pathological fracture; M54.50 Low back pain, unspecified
CPT/HCPCS: 72100

== ENCOUNTER → 2022-03-12 13:30 | Outpatient (CLI) | payer MEDICARE, OTHER, SELFPAY ==
[2022-03-12 16:35] LABS: Thyroid Stimulating Hormone 0.373 uIU/mL (0.47-4.68)
== END ==
PROVIDERS: PCP Family Medicine; Referring Provider Family Medicine; Visit Provider Family Medicine
DX: E03.9 Hypothyroidism, unspecified (principal)
CPT/HCPCS: 36415; 84443

== ENCOUNTER → 2022-04-17 09:01 | Outpatient (CLI) | payer MEDICARE, OTHER, SELFPAY ==
[2022-04-17 10:09] LABS: COVID19 -Nasal RAPID Negative (Negative)
== END ==
PROVIDERS: PCP Family Medicine; Visit Provider Surgery
DX: Z20.822 Contact with and (suspected) exposure to COVID-19 (principal); Z01.812 Encounter for preprocedural laboratory examination
CPT/HCPCS: 87635; C9803

== ENCOUNTER 2022-04-20 09:46 | Day surgery (SDC) | payer MEDICARE, OTHER, SELFPAY ==
--- NOTE | 2022-04-20 | PATH_ITS ---
[facility] Accession Number: [id number] . 01 Material submitted: . PART A: gastrointestinal site - GASTRIC BIOPSIES PART B: gastrointestinal site - GASTRIC POLYPS PART C: esophagus - DISTAL ESOPHAGUS BIOPSY PART D: esophagus - PROXIMAL ESOPHAGUS BIOPSY PART E: colon - ASCENDING COLON POLYP X3 PART F: sigmoid colon - SIGMOID COLON POLYP . 01 Clinical history: . A: R/O H.PYLORI . 01 Diagnosis: A. Stomach, Biopsies: Antral mucosa with reactive gastropathy and mild chronic gastritis. Negative for Helicobacter by immunohistochemistry. Negative for intestinal metaplasia. Negative for dysplasia and malignancy. . B. Stomach, Polyps, Biopsies: Fundic gland polyp. No evidence of Helicobacter organisms on H/E stain. Negative for intestinal metaplasia. Negative for dysplasia and malignancy. . C. Distal Esophagus, Biopsy: Squamocolumnar junctional mucosa with specialized intestinal metaplasia, consistent with Corbett's esophagus. Negative for dysplasia and malignancy. . D. Proximal Esophagus, Biopsy: Squamous epithelium with no diagnostic abnormality. Intraepithelial eosinophils are not increased. Negative for dysplasia and malignancy. . E. Ascending Colon, Polyp x3, Biopsies: Tubular adenomas. . F. Sigmoid Colon, Polyp, Biopsy: Benign lymphoid aggregate. [facility] 04/23/2022 1455 Local . 01 Electronically signed: . Zuleika Nguyen MD, Pathologist NPI- [id number] . 01 Gross description: . Part A: GASTRIC BIOPSIES: Received in formalin are 4 fragment(s) of bey, soft tissue measuring 0.4 x 0.2 x 0.1 cm to 0.1 x 0.1 x 0.1 cm submitted entirely in 1 cassette(s) Part B: GASTRIC POLYPS: Received in formalin is 1 fragment(s) of bey, soft tissue measuring 0.3 x 0.3 x 0.1 cm submitted entirely in 1 cassette(s) Part C: DISTAL ESOPHAGUS BIOPSY: Received in formalin are 4 fragment(s) of bey, soft tissue measuring 0.4 x 0.2 x 0.1 cm to 0.2 x 0.2 x 0.1 cm submitted entirely in 1 cassette(s) Part D: PROXIMAL ESOPHAGUS BIOPSY: Received in formalin are 3 fragment(s) of bey, soft tissue measuring 0.5 x 0.2 x 0.1 cm to 0.2 x 0.2 x 0.2 cm submitted entirely in 1 cassette(s) Part E: ASCENDING COLON POLYP X3: Received in formalin are multiple fragment(s) of bey, soft tissue measuring 1.2 x 1.0 x 0.2 cm in aggregate submitted entirely in 1 cassette(s) Part F: SIGMOID COLON POLYP: Received in formalin is 1 fragment(s) of bey, soft tissue measuring 0.8 x 0.3 x 0.2 cm submitted entirely in 1 cassette(s) /CPE 04/22/2022 1021 Local . 01 Microscopic: . A. An immunohistochemical stain was performed to evaluate for Helicobacter organisms and is negative. The control stain showed appropriate reactivity. . * This test was developed and its performance characteristics determined by [facility]. It has not been cleared or approved by the U.S. Food and Drug Administration. The FDA has determined that such clearance or approval is not necessary. This test is used for clinical purposes. It should not be regarded as investigational or for research. . 01 Pathologist provided ICD-10: K22.70, D12.2 . 01 CPT . 673003, 137076, 769039, 039219, 646530, 166643, K12474 Specimen Comment: A courtesy copy of this report has been sent to [phone] Performed at: 01 [facility] [address] [place] [address] [address], [place], [place] [id number] MD Ryan Gibson MD Phone: [phone]
--- NOTE | 2022-04-20 10:30 | PM.HP.1 ---
History of Present Illness History of Present Illness Date Patient Seen: 04/20/22 Time Patient Seen: 10:30 Chief complaint: DX COLONOSCOPY/EGD W/POSS BX'S Narrative: Patient is a very pleasant 66-year-old female who presented EGD and colonoscopy. She was last evaluated in the office on 01/22/2022. At that time she is having atypical chest pain and difficulty swallowing. Since then she has started S reducing medications which she does feel has helped the chest pain and trouble swallowing. She also has a personal history of colon polyps. Her last colonoscopy was March 2017. She is due for surveillance. Patient History Medical History Chronic back pain Hypothyroidism Porphyria Shoulder pain Surgical History History of laparotomy History of tonsillectomy Family & Social History Family History Father Dementia Osteoarthritis Mother Acute intermittent porphyria Tobacco & Substance use: Smoking Status Former smoker alcohol intake current Meds Home Medications and Allergies Home Medications Medication Instructions Recorded Confirmed Type naproxen sodium 220 mg tablet 440 - 880 mg PO QDAY ##0 11/12/11 10/06/21 History (Aleve) cholecalciferol (vitamin D3) 25 1,000 unit PO DAILY 10/11/18 10/06/21 History mcg (1,000 unit) capsule ascorbate calcium (vitamin C) 500 500 mg PO DAILY #90 tabs 05/05/19 10/06/21 Rx mg tablet diclofenac sodium 1 % topical gel 4 gram topical BIDP PRN pain #100 05/05/19 10/06/21 Rx (Voltaren) grams acetaminophen 500 mg capsule 1,000 mg PO .ONCE DAILY PRN 04/17/21 10/06/21 History tramadol 50 mg tablet 50 mg PO Q8HP PRN pain #90 tabs 07/02/21 10/06/21 Rx levothyroxine 125 mcg tablet 125 mcg PO DAILY #90 tabs 03/16/22 Rx (Synthroid) dexamethasone 0.5 mg/5 mL oral 0.5 mg PO DAILY 04/20/22 04/20/22 History solution esomeprazole magnesium 20 mg 20 mg PO DAILY 04/20/22 04/20/22 History capsule,delayed release (Nexium) famotidine 20 mg tablet 20 mg PO DAILY 04/20/22 04/20/22 History Allergies Allergy/AdvReac Type Severity Reaction Status Date / Time Sulfa (Sulfonamide Allergy Mild FAMILY HX Verified 04/20/22 10:28 Antibiotics) Barbiturates [BARBITURATES] Allergy Unknown Verified 04/20/22 10:28 ACUTE PORPHYRIAS Allergy Unknown SEE LIST Uncoded 10/06/21 15:14 Review of Systems Review of Systems ROS: Yes All systems reviewed with the patient and are negative except as otherwise documented Exam Const General: cooperative, healthy appearing, comfortable, well developed and No acute distress HENMT Head: atraumatic Resp Effort & Inspection: normal respiratory effort, able to speak in complete sentences and no audible wheezes Auscultation: clear to auscultation bilaterally Cardio Rate: regular rate Rhythm: regular rhythm GI Palpation: soft Assessment & Plan Assessment & Plan narrative: 1. Atypical chest pain 2. Esophageal dysphagia 3. History of colon polyps, last colonoscopy 03/2017 EGD and colonoscopy today, further recommendations to follow Time Spent With Patient Critical Care time: I spent a total of [] minutes of critical care time on this patient's care today; this time is exclusive of procedural time.
[2022-04-20 10:37] VITALS: BMI 20.9
[2022-04-20] MEDS: SODIUM CHLORIDE 0.9% 1,000 ML 70 ML IV (10:47)
[2022-04-20 10:48] VITALS: BP 128/73; PULSE 68; RESP 16; TEMP 37; O2SAT 97
[2022-04-20 11:03] LABS: COVID19 -Nasal RAPID Negative (Negative)
--- NOTE | 2022-04-20 11:53 | P.OP.EGD&C_ITS ---
Operative Date/Time/Diagnoses Date of procedure: 04/20/22 Time of procedure: 11:11 Procedure Notes Procedure in detail: Surgeon: Hoa Mayers DO Procedure: Esophagogastroduodenoscopy with biopsy and colonoscopy with polypectomy Preoperative diagnosis: 1. Atypical chest pain, dysphagia 2. History of colon polyps, last colonoscopy 03/2017 Postoperative diagnosis: 1. Subtly ringed esophagus -suspicious for eosinophilic esophagitis, proximal and distal esophageal biopsies 2. Multiple small gastric polyps, biopsied 3. Mild gastritis rule out H pylori, biopsied 4. Three ascending colon polyps 3 mm to 12 mm 5. 5 mm polyp in the sigmoid colon 6. Grade 1 internal hemorrhoids Medications: Monitored anesthesia care Preanesthesia Assessment An H and P was performed/updated and the Px?s ASA class is 2. The procedure was discussed in detail with the patient. The potential risks and complications including infection, bleeding, missed lesions, perforation, need for surgery in case of perforation, prolonged hospital stay, and were explained. A brief question and answer period was allotted and once all questions were answered, informed consent was obtained. The patient was brought back to the procedure room and placed on standard mon itoring. The patient?s vital signs were monitored continuously throughout the entire procedure. Prior to starting, a timeout was performed to confirm the patient?s identity, allergies, medications, and procedure. Procedure in detail The patient was placed in left lateral decubitus position and a bite block was inserted. The tip of the upper endoscope was placed into the mouth and advanced without difficulty under direct visualization into the esophagus. Esophagus: Subtly ringed appearance suspicious for eosinophilic esophagitis. Proximal and distal esophageal biopsies were obtained. Stomach: Small hiatal hernia approximately 2-3 cm. Mild gastritis, biopsied to rule out H pylori. Multiple small gastric polyps scattered throughout the stomach were biopsied. Duodenum: Normal appearing duodenum After the upper endoscopy, preparations were made for the colonoscopy. Once adequate sedation was obtained a ANTHONY was performed. The digital rectal examination did not reveal any palpable lesions. The tip of the colonoscope was placed in the anal canal and advanced without difficulty all the way to the cecum which was identified by the appendiceal orifice and the ileocecal valve. Terminal ileum was unremarkable. Three polyps were found in the ascending colon. A 3 mm polyp was removed with Jumbo forceps. Two larger polyps measuring 10-12 mm were removed with cold snare. 5 mm polyp in the sigmoid colon removed with cold snare. Grade 1 internal hemorrhoids were noted on retroflexion. Exam was otherwise unremarkable. The patient tolerated the procedure well and will be brought back to the recovery area to be discharged once criteria are met. The prep was judged to be good/excellent and adequate to identify polyps less than 5 mm. The withdrawal time was 17min. Complications There were no complications and estimated blood loss was minimal. Recommendations Resume previous diet Continue outpatient medications Follow-up pathology results Repeat colonoscopy will be determined after pathology results are reviewed Follow-up at our office if persistent symptoms An emergency contact number was given to the patient for any complications related to the procedure
[2022-04-20 11:57] VITALS: BP 101/64; PULSE 81; RESP 14; TEMP 36.3; O2SAT 95
[2022-04-20 12:03] VITALS: BP 102/59; PULSE 80; RESP 19; O2SAT 99
[2022-04-20 12:08] VITALS: BP 97/67; PULSE 68; RESP 16; O2SAT 99
[2022-04-20 12:14] VITALS: BP 110/62; PULSE 62; RESP 19; TEMP 36.3; O2SAT 100
[2022-04-20 12:18] VITALS: BP 121/58; PULSE 57; RESP 15; TEMP 36.4; O2SAT 100
== END 2022-04-20 12:30 | disposition home or self-care (01) ==
PROVIDERS: PCP Family Medicine; Referring Provider Student in an Organized Health Care Education/Training Program; Visit Provider Student in an Organized Health Care Education/Training Program
PROC: 0DJ08ZZ Inspection of Upper Intestinal Tract, Via Natural or Artificial Opening Endoscopic (ICD-10-PCS; CPT 43235; principal; 2022-04-20 11:00)
PROC: 0DJD8ZZ Inspection of Lower Intestinal Tract, Via Natural or Artificial Opening Endoscopic (ICD-10-PCS; CPT 45378; 2022-04-20 11:00)
DX: Z12.11 Encounter for screening for malignant neoplasm of colon (principal); Z86.010 Personal history of colon polyps; R07.89 Other chest pain; R13.10 Dysphagia, unspecified; K29.50 Unspecified chronic gastritis without bleeding; K64.0 First degree hemorrhoids; K31.7 Polyp of stomach and duodenum; Z20.822 Contact with and (suspected) exposure to COVID-19; K22.70 Barrett's esophagus without dysplasia; K31.9 Disease of stomach and duodenum, unspecified; D12.2 Benign neoplasm of ascending colon
CPT/HCPCS: 45385; 45380; 43239; 87635; C9803; J2704

== ENCOUNTER → 2022-07-10 12:10 | Outpatient (CLI) | payer MEDICARE, OTHER, SELFPAY ==
[2022-07-10 13:56] LABS: Free T3, Triiodothyronine Free 3.48 pg/mL (2.77-5.27)
[2022-07-10 14:10] LABS: TSH w/ Reflex to FT4 0.07 uIU/mL (0.47-4.68)
== END ==
PROVIDERS: PCP Family Medicine; Referring Provider Physician Assistant; Visit Provider Physician Assistant
DX: E03.9 Hypothyroidism, unspecified (principal)
CPT/HCPCS: 36415; 84439; 84443; 84481

== ENCOUNTER → 2022-07-24 12:28 | Outpatient (CLI) | payer MEDICARE, OTHER, SELFPAY ==
[2022-07-24 13:37] LABS: Add Manual Diff / Slide Review NO; Basophils Absolute Auto 100 /uL (0-100); Basophils Percent Auto 1.1 % (0-2); Eosinophils Absolute Auto 100 /uL (0-450); Hematocrit 31.3 % (36-46); Hemoglobin 9.5 g/dL (12.0-16.0); Lymphocytes Absolute Auto 1500 /uL (1100-4500); Lymphocytes Percent Auto 29.7 % (25-40); Mean Corpuscular HGB Conc 30.5 % (30-36); Mean Corpuscular Hemoglobin 20.7 PG (26-34); Mean Corpuscular Volume 67.9 fL (80-100); Monocytes Absolute Auto 300 /uL (0-900); Monocytes Percent Auto 6.1 % (3-14); Neutrophils Absolute Auto 3200 /uL (1500-7000); Neutrophils Percent Auto 62.1 % (50-75); Platelet Count 271 X10^3/uL (150-400); Red Cell Distribution Width 18.6 % (11.6-14.8); White Blood Cell Count 5.2 X10^3/uL (4.5-11.0)
[2022-07-24 13:57] LABS: HEMOLYSIS < 15 (0-50); Iron 24 ug/dL (37-170)
[2022-07-24 14:00] LABS: Hypochromasia 2+; Microcytosis 1+
[2022-07-24 14:01] LABS: Anisocytosis 1+
[2022-07-24 14:08] LABS: Percent Iron Saturation 5 % (15-50); Total Iron Binding Capacity 503 ug/dL (265-497)
[2022-07-24 14:13] LABS: Transferrin 354 mg/dL (206-381)
[2022-07-24 14:32] LABS: Ferritin 5 ng/mL (11-264)
[2022-07-24 15:04] LABS: Folate > 20.0 ng/mL (2.76-20.0); Vitamin B12 863 pg/mL (239-931)
== END ==
PROVIDERS: PCP Family Medicine; Referring Provider Family Medicine; Visit Provider Family Medicine
DX: R53.83 Other fatigue (principal); R79.0 Abnormal level of blood mineral; Z79.899 Other long term (current) drug therapy
CPT/HCPCS: 36415; 82607; 82728; 82746; 83540; 83550; 85025

== ENCOUNTER → 2022-09-30 12:22 | Outpatient (CLI) | payer MEDICARE, OTHER, SELFPAY ==
[2022-09-30 12:55] LABS: Add Manual Diff / Slide Review NO; Basophils Absolute Auto 0 /uL (0-100); Basophils Percent Auto 0.7 % (0-2); Eosinophils Absolute Auto 0 /uL (0-450); Eosinophils Percent Auto 0.5 % (2-4); Hematocrit 31.3 % (36-46); Hemoglobin 9.7 g/dL (12.0-16.0); Lymphocytes Absolute Auto 1600 /uL (1100-4500); Lymphocytes Percent Auto 26.3 % (25-40); Mean Corpuscular Hemoglobin 20.6 PG (26-34); Mean Corpuscular Volume 66.6 fL (80-100); Monocytes Absolute Auto 400 /uL (0-900); Monocytes Percent Auto 6.2 % (3-14); Neutrophils Absolute Auto 4100 /uL (1500-7000); Neutrophils Percent Auto 66.3 % (50-75); Platelet Count 288 X10^3/uL (150-400); White Blood Cell Count 6.2 X10^3/uL (4.5-11.0)
[2022-09-30 13:19] LABS: HEMOLYSIS < 15 (0-50)
[2022-09-30 13:21] LABS: Iron < 10 ug/dL (37-170)
[2022-09-30 13:31] LABS: Anisocytosis 2+; Ovalocytes 1+; Percent Iron Saturation 2 % (15-50); Poikilocytosis 1+; Total Iron Binding Capacity 508 ug/dL (265-497); Transferrin 378 mg/dL (206-381)
[2022-09-30 13:32] LABS: Target Cells 1+
[2022-09-30 13:52] LABS: Thyroid Stimulating Hormone 1.26 uIU/mL (0.47-4.68)
[2022-09-30 13:56] LABS: Ferritin 5 ng/mL (11-264)
== END ==
PROVIDERS: PCP Family Medicine; Referring Provider Physician Assistant; Visit Provider Physician Assistant
DX: E03.9 Hypothyroidism, unspecified (principal); D50.9 Iron deficiency anemia, unspecified
CPT/HCPCS: 36415; 82728; 83540; 83550; 84443; 85025

== ENCOUNTER → 2022-10-21 15:15 | Outpatient (CLI) | payer MEDICARE, OTHER, SELFPAY ==
--- NOTE | 2022-10-21 15:17 | DI.MG.S_ITS ---
BILATERAL DIGITAL SCREENING MAMMOGRAM 3D/2D WITH CAD: 10/21/2022 CLINICAL: Routine screening. Comparison is made to exams dated: 10/13/2021 mammogram, 10/11/2020 mammogram, 09/15/2019 mammogram, 08/16/2018 mammogram, and 03/08/2019 mammogram - [facility]. Both breasts are heterogeneously dense, which may obscure small masses (category c / 51-75% glandular tissue). Current study was also evaluated with a Computer Aided Detection (CAD) system. There are benign vascular calcifications in both breasts. No significant masses, calcifications, or other findings are seen in either breast. There has been no significant interval change. IMPRESSION: BENIGN There is no mammographic evidence of malignancy. A 1 year screening mammogram is recommended. Based on the Tyrer Cuzick model (a risk assessment model) the patient's lifetime risk is 9.1% and her 10 year risk is 5.4%. According to the ACR, ACS, and NCCN guidelines, an annual breast MRI exam along with mammogram is recommended if the patient's lifetime risk is 20% or greater. This exam was interpreted at Station ID: [id number]. NOTE: For mammograms, a report in lay terms will be sent to the patient. Approximately 15% of breast malignancies will not be visualized mammographically. In the management of a palpable breast mass, a negative mammogram must not discourage biopsy of a clinically suspicious lesion. Electronically Signed By: Sloan mariscal/judith:10/22/2022 11:53:40 letter sent: Normal Exam ACR BI-RADS Category 2: Benign Finding(s) 3342F
== END ==
PROVIDERS: PCP Family Medicine; Referring Provider Family Medicine; Visit Provider Family Medicine
DX: Z12.31 Encounter for screening mammogram for malignant neoplasm of breast (principal)
CPT/HCPCS: 77063; 77067

== ENCOUNTER → 2022-11-19 11:56 | Outpatient (CLI) | payer MEDICARE, OTHER, SELFPAY ==
[2022-11-19 12:46] LABS: Add Manual Diff / Slide Review NO; Basophils Absolute Auto 0 /uL (0-100); Basophils Percent Auto 0.7 % (0-2); Eosinophils Absolute Auto 0 /uL (0-450); Eosinophils Percent Auto 0.8 % (2-4); Hematocrit 38.3 % (36-46); Hemoglobin 12.4 g/dL (12.0-16.0); Lymphocytes Absolute Auto 1800 /uL (1100-4500); Mean Corpuscular HGB Conc 32.3 % (30-36); Mean Corpuscular Hemoglobin 23.9 PG (26-34); Monocytes Absolute Auto 400 /uL (0-900); Monocytes Percent Auto 5.9 % (3-14); Neutrophils Absolute Auto 4100 /uL (1500-7000); Neutrophils Percent Auto 63.6 % (50-75); Platelet Count 260 X10^3/uL (150-400); Red Blood Cell Count 5.17 X10^6/uL (4.0-5.2); Red Cell Distribution Width 30.4 % (11.6-14.8); White Blood Cell Count 6.4 X10^3/uL (4.5-11.0)
[2022-11-19 13:04] LABS: HEMOLYSIS < 15 (0-50); Iron 95 ug/dL (37-170)
[2022-11-19 13:15] LABS: Percent Iron Saturation 29 % (15-50); Total Iron Binding Capacity 333 ug/dL (265-497); Transferrin 247 mg/dL (206-381)
[2022-11-19 13:36] LABS: TSH w/ Reflex to FT4 2.04 uIU/mL (0.47-4.68)
[2022-11-19 13:47] LABS: Anisocytosis 2+
[2022-11-19 13:48] LABS: Hypochromasia 2+; Microcytosis 1+
== END ==
PROVIDERS: PCP Family Medicine; Referring Provider Physician Assistant; Visit Provider Physician Assistant
DX: D50.9 Iron deficiency anemia, unspecified (principal); E03.9 Hypothyroidism, unspecified; R53.83 Other fatigue
CPT/HCPCS: 36415; 83540; 83550; 84443; 85025

== ENCOUNTER → 2023-06-08 13:50 | Outpatient (CLI) | payer MEDICARE, OTHER, SELFPAY ==
[2023-06-08 14:50] LABS: Add Manual Diff / Slide Review NO; Basophils Absolute Auto 0 /uL (0-100); Basophils Percent Auto 0.7 % (0-2); Eosinophils Absolute Auto 0 /uL (0-450); Eosinophils Percent Auto 0.7 % (2-4); Hematocrit 43.5 % (36-46); Hemoglobin 14.7 g/dL (12.0-16.0); Lymphocytes Absolute Auto 1900 /uL (1100-4500); Lymphocytes Percent Auto 30.1 % (25-40); Mean Corpuscular HGB Conc 33.8 % (30-36); Mean Corpuscular Hemoglobin 31.3 PG (26-34); Mean Corpuscular Volume 92.6 fL (80-100); Monocytes Absolute Auto 400 /uL (0-900); Monocytes Percent Auto 6.7 % (3-14); Neutrophils Absolute Auto 3800 /uL (1500-7000); Neutrophils Percent Auto 61.8 % (50-75); Platelet Count 217 X10^3/uL (150-400); Red Cell Distribution Width 13.5 % (11.6-14.8); White Blood Cell Count 6.2 X10^3/uL (4.5-11.0)
[2023-06-08 15:17] LABS: HEMOLYSIS < 15 (0-50); Iron 97 ug/dL (37-170)
[2023-06-08 15:27] LABS: Percent Iron Saturation 33 % (15-50); Total Iron Binding Capacity 298 ug/dL (265-497); Transferrin 257 mg/dL (206-381)
[2023-06-08 15:52] LABS: Ferritin 44 ng/mL (11-264)
== END ==
PROVIDERS: PCP Family Medicine; Referring Provider Physician Assistant; Visit Provider Physician Assistant
DX: D50.9 Iron deficiency anemia, unspecified (principal)
CPT/HCPCS: 36415; 82728; 83540; 83550; 85025

== ENCOUNTER → 2023-10-22 10:31 | Outpatient (CLI) | payer MEDICARE, OTHER, SELFPAY ==
[2023-10-22 12:40] LABS: Hematocrit 42.3 % (36-46); Hemoglobin 14.2 g/dL (12.0-16.0)
[2023-10-22 13:34] LABS: Alanine Aminotransferase 36 IU/L (<35); Albumin 4.4 g/dL (3.5-5.0); Albumin Globulin Ratio 1.6 (1.0-2.8); Alkaline Phosphatase 60 U/L (38-126); Aspartate Aminotransferase 29 IU/L (14-36); BUN Creatinine Ratio 31.5 (6-22); Bilirubin Total 0.6 mg/dL (0.2-1.3); Blood Urea Nitrogen 17 mg/dL (7-17); Calcium 9.4 mg/dL (8.4-10.2); Carbon Dioxide 27 mmol/L (22-32); Chloride 104 mmol/L (98-107); Estimated Glomerular Filt Rate > 60 mL/min (>60); Globulin 2.7 g/dL (1.7-4.1); Glucose 84 mg/dL (80-110); HEMOLYSIS < 15 (0-50); Iron 115 ug/dL (37-170); Potassium 4.2 mmol/L (3.4-5.1); Sodium 137 mmol/L (137-145); Total Protein 7.1 g/dL (6.3-8.2)
[2023-10-22 13:46] LABS: Percent Iron Saturation 42 % (15-50); Total Iron Binding Capacity 276 ug/dL (265-497); Transferrin 214 mg/dL (206-381)
[2023-10-22 14:01] LABS: TSH w/ Reflex to FT4 1.61 uIU/mL (0.47-4.68)
[2023-10-22 14:33] LABS: Vitamin D 25 Hydroxy (D3) 103 ng/mL (30.0-100.0)
== END ==
PROVIDERS: PCP Family Medicine; Referring Provider Physician Assistant; Visit Provider Physician Assistant
DX: E03.9 Hypothyroidism, unspecified (principal); M81.0 Age-related osteoporosis without current pathological fracture; K22.70 Barrett's esophagus without dysplasia; D50.9 Iron deficiency anemia, unspecified; S22.080A Wedge compression fracture of T11-T12 vertebra, initial encounter for closed fracture
CPT/HCPCS: 36415; 80053; 82306; 83540; 83550; 84443; 85014; 85018

== ENCOUNTER → 2023-11-25 13:54 | Outpatient (CLI) | payer MEDICARE, OTHER, SELFPAY ==
--- NOTE | 2023-11-25 13:55 | DI.MG.S_ITS ---
BILATERAL DIGITAL SCREENING MAMMOGRAM 3D/2D WITH CAD: 11/25/2023 CLINICAL: Routine screening. Comparison is made to exams dated: 10/21/2022 mammogram, 10/13/2021 mammogram, and 10/11/2020 [facility]. Both breasts are heterogeneously dense, which may obscure small masses (category c / 51-75% glandular tissue). Current study was also evaluated with a Computer Aided Detection (CAD) system. There are benign vascular calcifications in both breasts. No significant masses, calcifications, or other findings are seen in either breast. There has been no significant interval change. IMPRESSION: BENIGN There is no mammographic evidence of malignancy. A 1 year screening mammogram is recommended. Based on the Tyrer Cuzick model (a risk assessment model) the patient's lifetime risk is 8.6% and her 10 year risk is 5.5%. According to the ACR, ACS, and NCCN guidelines, an annual breast MRI exam along with mammogram is recommended if the patient's lifetime risk is 20% or greater. This exam was interpreted at Station ID: [id number]. NOTE: For mammograms, a report in lay terms will be sent to the patient. Approximately 15% of breast malignancies will not be visualized mammographically. In the management of a palpable breast mass, a negative mammogram must not discourage biopsy of a clinically suspicious lesion. Electronically Signed By: Shari suarez/judith:11/25/2023 17:15:12 letter sent: Normal Exam ACR BI-RADS Category 2: Benign Finding(s) 3342F
== END ==
LOC: MAMMO 13:54
PROVIDERS: PCP Family Medicine; Referring Provider Family Medicine; Visit Provider Family Medicine
DX: Z12.31 Encounter for screening mammogram for malignant neoplasm of breast (principal); R92.333 Mammographic heterogeneous density, bilateral breasts
CPT/HCPCS: 77063; 77067

== ENCOUNTER → 2024-01-05 14:17 | Outpatient (CLI) | payer MEDICARE, OTHER, SELFPAY ==
--- NOTE | 2024-01-05 14:18 | DI.RAD.S_ITS ---
PROCEDURE: XR DEXA AXIAL SKELETON INDICATIONS: Osteoporosis lumbar spine; Osteopenia COMPARISON: [facility], CR, XR DEXA AXIAL SKELETON, 10/14/2018, 10:33. FINDINGS: Lumbar Spine: Bone mineral density 1.136 g/cm2, T score 0.8, compared to -0.4. Left Hip: Bone mineral density 0.694 g/cm2, T score -2.0, compared to -2.5. Left Femoral Neck: Bone mineral density 0.586 g/cm2, T score -2.4, compared to -2.7. Right Hip: Bone mineral density 0.677 g/cm2, T score -2.2, -2.7. Right Femoral Neck: Bone mineral density 0.688 g/cm2, T score -1.4, compared to -2.0. Fracture Risk Calculation (when applicable): 10-year fracture risk of a major osteoporotic fracture 21% and of a hip fracture 4.9% of the left hip and 15% and 2.1% of the right hip.. (T score greater or equal to -1.0 to: NORMAL) (T score from -1.1 to -2.4: OSTEOPENIA) (T score less than or equal to -2.5: OSTEOPOROSIS) IMPRESSION: Moderate to severe osteopenia in the left hip, femoral neck as well as right hip although mildly improved compared to prior exam. Follow-up guidelines as follows: Osteoporosis: Consider a repeat DEXA and Vertebral Fracture Assessment (VFA) exam in 2 years or sooner if medically necessary, to reassess this patient's status. Osteopenia: Consider a repeat DEXA in 2-3 years to reassess this patient's status, or if there is a new clinical indication. Normal: Consider a repeat DEXA in 5 years or sooner, or if there is a new clinical indication. All treatment decisions require clinical judgment and consideration of individual patient factors, including patient preferences, comorbidities, previous drug use, risk factors not captured in the FRAX model (e.g., frailty, falls, vitamin D deficiency, increased bone turnover, interval significant decline in bone density ) and possible under- or over-estimation of fracture risk by FRAX. In addition, the NOF Guide recommends that FDA-approved medical therapies be considered in postmenopausal women and men age >= 50 years with a: * Hip or vertebral (clinical or morphometric) fracture * T-score of <=-2.5 at the spine or hip * Ten-year fracture probability by FRAX of >= 3% for hip fracture or >=20% for major osteoporotic fracture. People with diagnosed cases of osteoporosis or at high risk for fracture should have regular bone mineral density tests. For patients eligible for Medicare, routine testing is allowed once every 2 years. The testing frequency can be increased to one year for patients who have rapidly progressing disease, those who are receiving or discontinuing medical therapy to restore bone mass, or have additional risk factors. Dictated by: Samanta Fonseca M.D. on 01/06/2024 at 16:13 Approved by: Samanta Fonseca M.D. on 01/06/2024 at 16:16
== END ==
LOC: RAD 14:18
PROVIDERS: PCP Family Medicine; Referring Provider Physician Assistant; Visit Provider Physician Assistant
DX: M81.0 Age-related osteoporosis without current pathological fracture (principal)
CPT/HCPCS: 77080

== ENCOUNTER → 2024-04-14 13:46 | Outpatient (CLI) | payer MEDICARE, OTHER, SELFPAY ==
--- NOTE | 2024-04-14 13:48 | DI.RAD.S_ITS ---
PROCEDURE: XR FOOT RT MIN 3V INDICATIONS: right foot pain swelling TECHNIQUE: 3 views of the foot were acquired. COMPARISON: [facility], CR, XR FOOT LT MIN 3V, 09/04/2019, 11:48. [facility], CR, XR FOOT LT MIN 3V, 07/13/2019, 13:59. FINDINGS: Bones: There is a remote, healed fracture seen involving the 5th metatarsal shaft. No acute fractures or dislocations. No suspicious bony lesions. Moderate hallux valgus deformity is seen, with associated focal degenerative change of the 1st metatarsophalangeal joint. Milder degenerative changes are seen elsewhere. Soft tissues: No tibiotalar joint effusion. Achilles tendon appears normal. IMPRESSION: Moderate hallux valgus deformity seen, with associated degenerative changes. Remote, healed 5th metatarsal shaft fracture. Dictated by: Fabian Tay M.D. on 04/15/2024 at 14:16 Approved by: Fabian Tay M.D. on 04/15/2024 at 14:17
== END ==
PROVIDERS: PCP Family Medicine; Referring Provider Physician Assistant; Visit Provider Physician Assistant
DX: M79.671 Pain in right foot (principal); M79.89 Other specified soft tissue disorders; M20.11 Hallux valgus (acquired), right foot; Z87.81 Personal history of (healed) traumatic fracture
CPT/HCPCS: 73630

== ENCOUNTER → 2024-04-19 11:42 | Outpatient (CLI) | payer MEDICARE, OTHER, SELFPAY ==
--- NOTE | 2024-04-19 11:43 | DI.CT.S_ITS ---
PROCEDURE: CT FOOT RIGHT WITHOUT CON INDICATIONS: Right foot pain/swelling - forefoot Hx of stress fx L foot TECHNIQUE: Noncontrast 1-1.5 mm axial sections acquired from above the tibiotalar joint to the bottom of the calcaneus, with coronal and sagittal reformats. COMPARISON: None. FINDINGS: Image quality: Excellent. Bones: Mild hallux valgus. Mild degenerative changes of the 1st metatarsal phalangeal joint. Deformity of the 5th metatarsal diaphysis, representing prior healed fracture. No acute fracture or dislocation. Soft tissues: The flexors, and extensor tendons are grossly unremarkable. No significant tibiotalar effusion. IMPRESSION: No acute fracture in the right foot. Chronic changes as described above. Dictated by: Vilma Wilson M.D. on 04/19/2024 at 13:07 Approved by: Vilma Wilson M.D. on 04/19/2024 at 13:12
== END ==
LOC: CT 11:43
PROVIDERS: PCP Family Medicine; Referring Provider Physician Assistant; Visit Provider Physician Assistant
DX: M20.11 Hallux valgus (acquired), right foot (principal); M79.671 Pain in right foot; M79.89 Other specified soft tissue disorders; Z87.312 Personal history of (healed) stress fracture
CPT/HCPCS: 73700

== ENCOUNTER → 2024-12-09 11:27 | Outpatient (CLI) | payer MEDICARE, OTHER, SELFPAY ==
--- NOTE | 2024-12-09 11:28 | DI.MG.S_ITS ---
MM screening mammo BI: 12/09/2024. BI-RADS: 2 CLINICAL: 69-year old female for bilateral screening mammogram. Tyrer-Cuzick lifetime risk of 7.6%. No personal or first-degree family history of breast cancer. PRIOR EXAMS 11/25/2023, 10/21/2022, 10/13/2021, 10/11/2020, 03/28/2020, 09/15/2019, 03/08/2019, 08/31/2018, 08/16/2018, 05/19/2017, 05/18/2016. MAMMOGRAPHY TECHNIQUE: 2D and 3D (tomosynthesis) digital mammographic views obtained, with additional images as needed for full coverage. Current study was also evaluated with a Computer Aided Detection (CAD) system. DENSITY D. The breasts are extremely dense, which lowers the sensitivity of mammography. MAMMOGRAPHY FINDINGS Bilateral: Benign-appearing calcifications noted. There are no suspicious masses, calcifications, or other findings in the breast. No significant change from comparison. IMPRESSION: * No evidence of malignancy with benign findings. RECOMMENDATIONS Bilateral * Annual screening mammography. OVERALL ASSESSMENT CATEGORY BI-RADS-2: Benign. The [employer] recommends annual screening mammography beginning at age 40 for women with average risk of breast cancer. ELECTRONICALLY SIGNED: Shari Murry M.D. on 12/11/2024 at 04:05:37 PM PT Interpreting Station ID: [id number]
== END ==
LOC: MAMMO 11:27
PROVIDERS: PCP Family Medicine; Referring Provider Family Medicine; Visit Provider Family Medicine
DX: Z12.31 Encounter for screening mammogram for malignant neoplasm of breast (principal); R92.343 Mammographic extreme density, bilateral breasts
CPT/HCPCS: 77063; 77067

== ENCOUNTER → 2025-01-02 13:02 | Outpatient (CLI) | payer MEDICARE, OTHER, SELFPAY ==
[2025-01-02 14:20] LABS: Add Manual Diff / Slide Review NO; Hematocrit 40.4 % (36-46); Hemoglobin 13.4 g/dL (12.0-16.0); Lymphocytes Absolute Auto 2000 /uL (1100-4500); Mean Corpuscular HGB Conc 33.2 % (30-36); Mean Corpuscular Hemoglobin 28.7 PG (26-34); Mean Corpuscular Volume 86.5 fL (80-100); Platelet Count 244 X10^3/uL (150-400)
[2025-01-02 14:46] LABS: HEMOLYSIS < 15 (0-50); Iron 60 ug/dL (37-170)
[2025-01-02 14:48] LABS: Alanine Aminotransferase 24 IU/L (<35); Albumin 4.3 g/dL (3.5-5.0); Albumin Globulin Ratio 1.8 (1.0-2.8); Alkaline Phosphatase 83 U/L (38-126); Blood Urea Nitrogen 20 mg/dL (7-17); Calcium 9.4 mg/dL (8.4-10.2); Carbon Dioxide 29 mmol/L (22-32); Chloride 104 mmol/L (98-107); Cholesterol 175 mg/dL (140-199); Estimated Glomerular Filt Rate > 60 mL/min (>60); Globulin 2.4 g/dL (1.7-4.1); Glucose 82 mg/dL (70-99); HDL Cholesterol 70 mg/dL (40-60); HEMOLYSIS < 15 (0-50); Potassium 4.4 mmol/L (3.4-5.1); Sodium 139 mmol/L (137-145); Total Protein 6.7 g/dL (6.3-8.2); Triglycerides 51 mg/dL (35-150)
[2025-01-02 14:57] LABS: Percent Iron Saturation 15 % (15-50); Total Iron Binding Capacity 401 ug/dL (265-497); Transferrin 325 mg/dL (206-381)
[2025-01-02 15:18] LABS: TSH w/ Reflex to FT4 1.64 uIU/mL (0.47-4.68)
== END ==
PROVIDERS: PCP Family Medicine; Referring Provider Family Medicine; Visit Provider Family Medicine
DX: D50.9 Iron deficiency anemia, unspecified (principal); E03.9 Hypothyroidism, unspecified
CPT/HCPCS: 36415; 80053; 80061; 83540; 83550; 84443; 85025

== ENCOUNTER → 2025-01-16 11:24 | Outpatient (CLI) | payer MEDICARE, OTHER, SELFPAY ==
--- NOTE | 2025-01-16 11:26 | DI.RAD.S_ITS ---
PROCEDURE: XR SHOULDER LT MIN 2V INDICATIONS: shouder pain TECHNIQUE: Three views of the left shoulder were acquired. COMPARISON: None. FINDINGS: Bones: There are no osseous abnormalities. Acromioclavicular and glenohumeral joints: Severe glenohumeral degeneration noted. Acromioclavicular joint is normal Soft tissues: No soft tissue swelling, calcification or mass. IMPRESSION: Severe glenohumeral degeneration Dictated by: Jorge Judd M.D. on 01/17/2025 at 13:22 Approved by: Jorge Judd M.D. on 01/17/2025 at 13:23
--- NOTE | 2025-01-16 11:26 | DI.RAD.S_ITS ---
PROCEDURE: XR SHOULDER RT MIN 2V INDICATIONS: shouder pain TECHNIQUE: Three views of the right shoulder were acquired. COMPARISON: None. FINDINGS: Bones: Mild deformity of the proximal humerus may represent a malunified old fracture Joints: Moderate acromioclavicular and severe glenohumeral degeneration noted. Soft tissues: 1.5 cm dystrophic calcification is seen in the right lateral upper chest wall IMPRESSION: Chronic findings Dictated by: Jorge Judd M.D. on 01/17/2025 at 13:23 Approved by: Jorge Judd M.D. on 01/17/2025 at 13:24
== END ==
PROVIDERS: PCP Family Medicine; Referring Provider Family Medicine; Visit Provider Family Medicine
DX: M19.011 Primary osteoarthritis, right shoulder (principal); M19.012 Primary osteoarthritis, left shoulder; M25.511 Pain in right shoulder; M25.512 Pain in left shoulder; G89.29 Other chronic pain
CPT/HCPCS: 73030

== ENCOUNTER → 2025-06-09 13:21 | Outpatient (CLI) | payer MEDICARE, OTHER, SELFPAY ==
--- NOTE | 2025-06-09 13:24 | DI.RAD.S_ITS ---
PROCEDURE: XR CHEST 2V INDICATIONS: Shortness of breath TECHNIQUE: 2 views of the chest were acquired. COMPARISON: [facility], CR, XR CHEST 2V, 09/15/2018, 11:34. FINDINGS: Surgical changes and devices: None. Lungs and pleura: Lungs are clear. No pleural effusions or pneumothorax. Mediastinum: Mediastinal contours are normal. Heart size is normal. Bones and chest wall: Chronic T12 compression deformity. No interval progressive height loss. No suspicious bony abnormalities. Soft tissues appear unremarkable. IMPRESSION: No acute cardiopulmonary abnormality is seen. Dictated by: Jesús Valera M.D. on 06/09/2025 at 13:07 Approved by: Jesús Valera M.D. on 06/09/2025 at 13:08
== END ==
LOC: RAD 13:23
PROVIDERS: PCP Family Medicine; Referring Provider Chiropractor; Visit Provider Chiropractor
DX: R06.02 Shortness of breath (principal)
CPT/HCPCS: 71046

== ENCOUNTER → 2025-06-24 13:40 | Outpatient (CLI) | payer MEDICARE, OTHER, SELFPAY | PROVIDERS: PCP Family Medicine; Visit Provider Chiropractor | DX: R39.15 Urgency of urination (principal) | CPT/HCPCS: 87086 ==